=== PATIENT | female | born 1970 | race Asian ===

== ENCOUNTER 2025-03-17 20:06 | Inpatient (IN) | payer OTHER ==
[~2025-03-17] VITALS: Ht 154.9 cm; Wt 74.8 kg
[2025-03-17] MEDS: FAMOTIDINE 20MG/2ML VIAL IV STA (21:12)
[2025-03-17] MEDS: ONDANSETRON HCL 4MG/2ML INJ IV STA (21:12)
[2025-03-17] MEDS: LACTATED RINGERS 1,000 ML IV ONE (21:12)
[2025-03-17 21:43] LABS: HEMATOCRIT. 45.7 % (36.0-48.0); HEMOGLOBIN. 14.7 g/dL (12.0-16.0); MEAN CORPUSCULAR HEMOGLOBIN 29.3 pg (28.0-32.0); MEAN CORPUSCULAR HGB CONC 32.2 g/dL (31.0-37.0); MEAN CORPUSCULAR VOLUME 91.1 fL (81.0-99.0); MEAN PLATELET VOLUME 9.2 fl (7.4-10.4); PLATELET 276 x1000/uL (130-400); RED BLOOD CELL COUNT 5.02 mill/uL (4.2-5.4); RED CELL DISTRIBUTION WIDTH 13.3 % (11.6-14.6); WHITE BLOOD COUNT 19.5 x1000/uL (4.5-11.0)
[2025-03-17 21:45] LABS: DIFFERENTIAL COMMENT 1
[2025-03-17 21:51] LABS: PROTHROMBIN TIME 10.3 sec (9.6-11.0)
[2025-03-17 21:57] LABS: CHLORIDE 107 mEq/L (98-107); POTASSIUM 3.6 mEq/L (3.5-5.1); SODIUM 142 mEq/L (136-145)
[2025-03-17 21:58] LABS: CALCIUM 10.4 mg/dL (8.7-10.4); CARBON DIOXIDE 20 mEq/L (21-32)
[2025-03-17 22:03] LABS: CREATININE 0.6 mg/dL (0.6-1.0); GLUCOSE 168 mg/dL (70-105); UREA NITROGEN BLOOD 15 mg/dL (9-23)
[2025-03-17 22:05] LABS: ALANINE AMINOTRANSFERASE 26 IU/L (10-49); ALBUMIN 4.8 g/dL (3.2-4.8); ASPARTATE AMINOTRANSFERASE 20 IU/L (<34); BILIRUBIN DIRECT 0.1 mg/dL (<=3.0); BILIRUBIN TOTAL 0.7 mg/dL (0.1-1.0)
[2025-03-17 22:07] LABS: TROPONIN I HIGH SENSITIVITY < 4 ng/L (3.0-34)
[2025-03-17] MEDS: METOCLOPRAMIDE HCL 10MG/2ML VIAL IV ONE (22:15)
[2025-03-17 22:44] LABS: PLATELET ESTIMATE NORMAL
[2025-03-18] VITALS: BP 158/76; PULSE 117; RESP 18; TEMP 36.7; O2SAT 97
[2025-03-18] MEDS ORDERED: CLONIDINE 0.1MG TABLET PO PRN (01:30)
[2025-03-18] MEDS ORDERED: GUAIFENESIN 200MG/10ML SUGAR FREE UDC PO PRN (01:30)
[2025-03-18] MEDS ORDERED: IPRATROPIUM/ALBUTEROL 0.5-3(2.5)MG/3ML NEB HHN PRN (01:30)
[2025-03-18] MEDS ORDERED: DEXTROSE 50% WATER 50ML SYRINGE IV PRN (01:45)
[2025-03-18] MEDS ORDERED: HYDRALAZINE 20MG/ML VIAL IV PRN (01:45)
[2025-03-18 01:48] VITALS: BP 158/76; PULSE 117; RESP 18; TEMP 36.7
[2025-03-18] MEDS: METOPROLOL SUCCINATE 50MG ER TABLET PO SCH (02:37)
[2025-03-18] MEDS: ACETAMINOPHEN 325MG TABLET PO PRN (02:37)
[2025-03-18] MEDS: ONDANSETRON HCL 4MG/2ML INJ IV PRN (02:38)
[2025-03-18] MEDS: AMLODIPINE 10MG TABLET PO SCH (02:38)
[2025-03-18] MEDS: PANTOPRAZOLE SODIUM 40 MG/VIAL IV SCH (02:38)
[2025-03-18 03:33] LABS: HEMATOCRIT. 45.7 % (36.0-48.0); HEMOGLOBIN. 14.7 g/dL (12.0-16.0); MEAN CORPUSCULAR HEMOGLOBIN 29.1 pg (28.0-32.0); MEAN CORPUSCULAR HGB CONC 32.3 g/dL (31.0-37.0); MEAN CORPUSCULAR VOLUME 90.1 fL (81.0-99.0); MEAN PLATELET VOLUME 9.1 fl (7.4-10.4); PLATELET 255 x1000/uL (130-400); RED BLOOD CELL COUNT 5.07 mill/uL (4.2-5.4); RED CELL DISTRIBUTION WIDTH 13.5 % (11.6-14.6)
[2025-03-18 03:38] LABS: DIFFERENTIAL COMMENT 1
[2025-03-18 03:42] LABS: CHLORIDE 111 mEq/L (98-107); POTASSIUM 3.8 mEq/L (3.5-5.1); SODIUM 141 mEq/L (136-145)
[2025-03-18 03:43] LABS: CALCIUM 10.7 mg/dL (8.7-10.4); CARBON DIOXIDE 17 mEq/L (21-32)
[2025-03-18 03:48] LABS: CREATININE 0.5 mg/dL (0.6-1.0); GLUCOSE 158 mg/dL (70-105); TRIGLYCERIDE 78 mg/dL (0-150); UREA NITROGEN BLOOD 13 mg/dL (9-23)
[2025-03-18 03:49] LABS: LDL CHOLESTEROL 85 mg/dL (5-100)
[2025-03-18 03:50] LABS: ALBUMIN 4.7 g/dL (3.2-4.8); CHOLESTEROL 195 mg/dL (<200); HDL CHOLESTEROL 79 mg/dL (>65); PHOSPHORUS 4.1 mg/dL (2.5-4.9)
[2025-03-18 03:52] LABS: THYROID STIMULATING HORMONE 0.45 uIU/mL (0.55-4.78)
[2025-03-18 03:53] LABS: T4 FREE 1.41 ng/dL (0.89-1.76)
[2025-03-18 04:00] VITALS: BP 140/76; PULSE 107; RESP 19; TEMP 36.7; O2SAT 97
[2025-03-18] MEDS: DEXT 5%/0.9% NACL 1,000 ML IV SCH (04:03)
[2025-03-18 04:16] LABS: TROPONIN I HIGH SENSITIVITY 10 ng/L (3.0-34)
[2025-03-18 04:36] LABS: PLATELET ESTIMATE NORMAL
[2025-03-18] MEDS: BLOOD SUGAR DIAGNOSTIC STRIP TEST SCH (06:05)
[2025-03-18 08:31] LABS: CLARITY URINE CLEAR (CLEAR); COLOR URINE YELLOW (YELLOW); GLUCOSE URINE 3+ (NEGATIVE); KETONES URINE 4+ (NEGATIVE); LEUKOCYTE ESTERASE URINE NEGATIVE (NEGATIVE); NITRITE URINE NEGATIVE (NEGATIVE); OCCULT BLOOD URINE TRACE (NEGATIVE); PH URINE 5.5 (4.5-8.0); PROTEIN URINE TRACE (NEGATIVE); SPECIFIC GRAVITY URINE 1.028 (1.005-1.030); UROBILINOGEN URINE 0.2 E.U./dL (0.2-1.0)
[2025-03-18 08:55] LABS: FINE GRANULAR CASTS URINE 0-5 /lpf; HYALINE CASTS URINE 0-5 /lpf
[2025-03-18] MEDS: ASPIRIN 81MG EC TABLET PO SCH (08:56)
[2025-03-18 08:57] LABS: RBC URINE 0-2 /hpf (0-2); WBC URINE 0-2 /hpf (0-2)
[2025-03-18] MEDS: LOSARTAN 100 MG TABLET PO SCH (08:57)
[2025-03-18 08:58] LABS: SQUAMOUS EPITHELIAL CELL URINE FEW /lpf (RARE/1+)
[2025-03-18 08:59] LABS: BACTERIA URINE TRACE; MUCUS URINE 1+ /lpf (< = 2+)
[2025-03-18] MEDS: INSULIN LISPRO 100 UNITS/ML SUBCUT SCH (09:08)
[2025-03-18 11:03] LABS: *AMPHETAMINES SCREEN URINE NEGATIVE (NEGATIVE); *BENZODIAZEPINES SCREEN URINE NEGATIVE (NEGATIVE)
[2025-03-18 11:04] LABS: *BARBITURATES SCREEN URINE NEGATIVE (NEGATIVE); *COCAINE SCREEN URINE NEGATIVE (NEGATIVE); CANNABINOID URINE SCREEN PRESUMPTIVE POSITIVE (NEGATIVE); ECSTASY MDMA SCREEN URINE NEGATIVE (NEGATIVE); METHADONE URINE SCREEN NEGATIVE (NEGATIVE); OPIATES URINE SCREEN NEGATIVE (NEGATIVE); PHENCYCLIDINE URINE SCREEN NEGATIVE (NEGATIVE)
[2025-03-18 17:45] LABS: TROPONIN I HIGH SENSITIVITY 19 ng/L (3.0-34)
[2025-03-18 20:00] VITALS: BP 144/76; PULSE 88; RESP 18; TEMP 36.3; O2SAT 97
[2025-03-18] MEDS: ATORVASTATIN CALCIUM 40MG TABLET PO SCH (20:52)
[2025-03-18] MEDS: LORAZEPAM 0.5MG TABLET PO PRN (20:52)
[2025-03-19] VITALS: BP 128/77; PULSE 88; RESP 18; TEMP 36.4; O2SAT 100
[2025-03-19 04:00] VITALS: BP 135/82; PULSE 90; RESP 19; TEMP 36.6; O2SAT 98
[2025-03-19 07:03] LABS: CHLORIDE 109 mEq/L (98-107); POTASSIUM 3.6 mEq/L (3.5-5.1); SODIUM 143 mEq/L (136-145)
[2025-03-19 07:04] LABS: CALCIUM 9.6 mg/dL (8.7-10.4); CARBON DIOXIDE 25 mEq/L (21-32)
[2025-03-19 07:09] LABS: CREATININE 0.6 mg/dL (0.6-1.0); GLUCOSE 166 mg/dL (70-105); UREA NITROGEN BLOOD 13 mg/dL (9-23)
[2025-03-19 08:00] VITALS: BP 127/62; PULSE 90; RESP 19; TEMP 36.2; O2SAT 98
[2025-03-19 10:44] LABS: HEMATOCRIT 45.9 % (36.0-48.0); MEAN CORPUSCULAR HEMOGLOBIN 29.4 pg (28.0-32.0); MEAN CORPUSCULAR HGB CONC 32.8 g/dL (31.0-37.0); MEAN CORPUSCULAR VOLUME 89.6 fL (81.0-99.0); PLATELET 267 x1000/uL (130-400); RED BLOOD CELL COUNT 5.12 mill/uL (4.2-5.4); RED CELL DISTRIBUTION WIDTH 13.1 % (11.6-14.6); WHITE BLOOD COUNT 17.8 x1000/uL (4.5-11.0)
[2025-03-19 12:00] VITALS: BP 166/98; PULSE 91; RESP 19; TEMP 36.2; O2SAT 99
[2025-03-19] MEDS: DEXT 5%/0.45% NACL 500ML 500 ML IV ONE (12:50)
[2025-03-19] MEDS: CLONIDINE 0.1MG TABLET PO PRN (14:02)
[2025-03-19 16:00] VITALS: BP 156/92; PULSE 90; RESP 21; TEMP 36.2; O2SAT 98
[2025-03-19] MEDS ORDERED: HYDRALAZINE 10 MG in SODIUM CHLORIDE 0.9% 49.5 ML IV PRN (17:15)
[2025-03-19] MEDS: PANTOPRAZOLE SODIUM 40 MG/VIAL IV SCH (20:45)
[2025-03-19] MEDS: METOPROLOL SUCCINATE 50MG ER TABLET PO NR (20:47)
[2025-03-20 01:25] LABS: TROPONIN I HIGH SENSITIVITY 23 ng/L (3.0-34)
[2025-03-20] MEDS: ACETAMINOPHEN 325MG TABLET PO PRN (03:21)
[2025-03-20 06:34] LABS: CHLORIDE 105 mEq/L (98-107); POTASSIUM 3.3 mEq/L (3.5-5.1); SODIUM 139 mEq/L (136-145)
[2025-03-20 06:35] LABS: CALCIUM 10.4 mg/dL (8.7-10.4); CARBON DIOXIDE 26 mEq/L (21-32)
[2025-03-20 06:40] LABS: GLUCOSE 138 mg/dL (70-105); UREA NITROGEN BLOOD 14 mg/dL (9-23)
[2025-03-20 06:41] LABS: HEMATOCRIT 45.9 % (36.0-48.0); HEMOGLOBIN 15.1 g/dL (12.0-16.0); MEAN CORPUSCULAR HEMOGLOBIN 29.6 pg (28.0-32.0); MEAN CORPUSCULAR VOLUME 89.7 fL (81.0-99.0); PLATELET 262 x1000/uL (130-400); RED BLOOD CELL COUNT 5.12 mill/uL (4.2-5.4); RED CELL DISTRIBUTION WIDTH 13.1 % (11.6-14.6); TROPONIN I HIGH SENSITIVITY 17 ng/L (3.0-34); WHITE BLOOD COUNT 11.5 x1000/uL (4.5-11.0)
[2025-03-20 06:45] LABS: CREATININE 0.6 mg/dL (0.6-1.0)
[2025-03-20 08:00] VITALS: BP 142/87; PULSE 101; RESP 18; TEMP 35.7; O2SAT 96
[2025-03-20] MEDS: METOPROLOL SUCCINATE 50MG ER TABLET PO SCH (08:40)
[2025-03-20] MEDS ORDERED: METOPROLOL SUCCINATE 50MG ER TABLET PO SCH ×2 (09:00)
[2025-03-20 12:00] VITALS: BP 131/77; PULSE 95; RESP 18; TEMP 36.3; O2SAT 96
[2025-03-20] MEDS ORDERED: METO-385 PO (15:52)
[2025-03-20] MEDS ORDERED: ASPI-1406 PO (15:52)
[2025-03-20] MEDS ORDERED: LOSA100T33 PO (15:52)
[2025-03-20] MEDS ORDERED: AMLO10TA80 PO (15:52)
[2025-03-20] MEDS ORDERED: LIP40 PO (15:52)
[2025-03-20] MEDS ORDERED: EMPA10TA PO (15:59)
[2025-03-20] MEDS ORDERED: ONDA4TAB50 MT (15:59)
[2025-03-20 16:00] VITALS: BP 136/81; PULSE 99; RESP 18; TEMP 36.1; O2SAT 98
[2025-03-20] MEDS: KCL 20MEQ/100ML PREMIX 100 ML IV NR (16:10)
[2025-03-20 17:15] VITALS: BP 136/81; PULSE 99; RESP 18; TEMP 36.1; O2SAT 98
[2025-03-20 18:23] VITALS: BP 134/79; PULSE 97; TEMP 97.1; O2SAT 99
== END 2025-03-20 19:10 | disposition home or self-care (01) | DRG 392 ==
LOC: ER 20:06 → EDBEDREQ 22:18 → 8EST 23:06 → EDBEDREQ 23:16 → 6WST 03-19 18:43
PROVIDERS: ADMIT Hospitalist; ATTEND Hospitalist
DX: R11.2 Nausea with vomiting, unspecified (principal); E87.20 Acidosis, unspecified; R65.10 Systemic inflammatory response syndrome (SIRS) of non-infectious origin without acute organ dysfunction; E11.9 Type 2 diabetes mellitus without complications; I10 Essential (primary) hypertension; E66.9 Obesity, unspecified; Z68.31 Body mass index [BMI] 31.0-31.9, adult; E78.00 Pure hypercholesterolemia, unspecified; D72.829 Elevated white blood cell count, unspecified; K57.30 Diverticulosis of large intestine without perforation or abscess without bleeding; T38.3X5A Adverse effect of insulin and oral hypoglycemic [antidiabetic] drugs, initial encounter; Y92.89 Other specified places as the place of occurrence of the external cause; Z86.73 Personal history of transient ischemic attack (TIA), and cerebral infarction without residual deficits; Z90.710 Acquired absence of both cervix and uterus; Z79.899 Other long term (current) drug therapy; Z79.84 Long term (current) use of oral hypoglycemic drugs; Z90.49 Acquired absence of other specified parts of digestive tract; Z79.4 Long term (current) use of insulin
CPT/HCPCS: 36415; 74176; 80048; 80061; 80076; 80305; 81003; 82040; 82962; 83036; 83605; 83735; 84100; 84145; 84439; 84443; 84484; 85025; 85027; 93005; 99285; J1815; J2405; J2470; J3480; J3490; J7042; J7120